=== PATIENT | female | born 1960 | race Caucasian/White ===

== ENCOUNTER 2016-09-30 20:54 | Emergency (ER) | payer MEDICARE, BC ==
[2016-09-30 19:00] LABS: BASOPHILS 0.3 %; BASOPHILS ABSOLUTE 0.02 10/3/uL (0.0-0.16); EOSINOPHILS 1.4 %; ER CBC TAT 0 Hrs 05 Mins; HEMATOCRIT 35.2 % (36.0-48.0); HEMOGLOBIN 11.5 g/dL (12.0-16.0); IMMATURE GRANULOCYTES 0.3 %; IMMATURE GRANULOCYTES ABSOLUTE 0.02 10/3/uL (0.0-0.11); LYMPHOCYTES 32.4 %; LYMPHOCYTES ABSOLUTE 2.33 10/3/uL (0.67-4.30); MANUAL DIFF NO %; MEAN CORPUS HGB CONC 32.7 g/dL (32.0-36.0); MEAN CORPUSCULAR HEMOGLOB 28.5 pg (26.0-34.0); MEAN CORPUSCULAR VOLUME 87.1 fL (80-100); MONOCYTES 5.7 %; MONOCYTES ABSOLUTE 0.41 10/3/uL (0.21-1.20); NEUTROPHILS 59.9 %; NEUTROPHILS ABSOLUTE 4.32 10/3/uL (2.02-8.40); PLATELET COUNT 172 10/3/uL (150-400); RBC DISTRIBUTION WIDTH 13.7 % (12.0-16.0); RED CELL COUNT 4.04 10/6/uL (4.0-5.6); WHITE BLOOD CELLS 7.2 10/3/uL (4.5-10.5)
[2016-09-30 19:16] LABS: A/G RATIO 1.2 (0.7-1.9); ALBUMIN 3.6 G/DL (3.5-5.0); ALKALINE PHOSPHATASE 104 U/L (45-117); CALCIUM, SERUM 8.3 MG/DL (8.5-10.4); CHLORIDE, SERUM 107 MMOL/L (96-112); CO2 (CARBON DIOXIDE) 26 MMOL/L (24-34); CREATININE 0.76 MG/DL (0.55-1.02); GFR AFRICAN AMERICAN 102 ML/MIN (>=60); GFR NON AFRICAN AMERICAN 88 ML/MIN (>=60); GLOBULIN 3.1 G/DL (2.5-4.1); GLUCOSE, SERUM 98 MG/DL (60-99); POTASSIUM, SERUM 3.7 MMOL/L (3.5-5.3); SGOT(AST) 7 U/L (5-40); SGPT(ALT) 21 U/L (5-65); SODIUM, SERUM 143 MMOL/L (135-148); TOTAL BILIRUBIN 0.6 MG/DL (0-1.2); TOTAL PROTEIN 6.7 G/DL (6.0-8.5)
[2016-09-30 19:18] LABS: BUN (BLOOD UREA NITROGEN) 11 MG/DL (6-23)
[~2016-09-30 20:54] MED LIST: ACCUNEB INH; ALBUTEROL; ALLEGRA180 PO; AMB10 PO; AMITIZA8 MCG PO; AMRIX30 MG PO; BENTYL10 PO; CALTRA600D PO; CELEXA20 PO; CELEXA40 MG PO; CYANO1000T PO; CYMBALTA30 PO; D 5000 PO; EPIPEN0.3 IM; FISH-EPA1000 MG PO; FLONASE NAS; HARD NAILS PO; JUICE PLUS PO; KLOR-CON 1010 MEQ PO; KLOR-CON M1010 MEQ PO; L20 PO; L40 PO; LIDODERM T; MINIVELLE PATCH TOP; MINIVELLE1 EAC1 TOP; MONO20 PO; NASACORTAQ NAS; NUCYNTA75 MG PO; PATANASE0.6 % NAS; PERCOCET1 TA4 PO; PERCOCET1 TA5 PO; PR25 PO; PREV30 PO; PRILO PO; PROAIR HFA INH; PROZAC PO; PULMICORT180 MCG INH; PVC V; REQUIP1 PO; REQUIP25 PO; ROXICODONE15 MG PO; SINGULAIR1 PO; SYMBICORT 160/41 INH INH; SYMBICORT 80/4.1 INH INH; VITAMIN B-122500 MCG SL; VIVELLE-DOT0.1 MG TOP; ZANAFLEX 4 MG TA4 MG PO; ZETIA PO; ZOCOR40 PO
== END 2016-09-30 22:25 | disposition home or self-care (01) ==
LOC: ER 20:54
PROVIDERS: Hospitalist
DX: M54.5 Low back pain (principal); R32 Unspecified urinary incontinence; F17.200 Nicotine dependence, unspecified, uncomplicated; Z88.0 Allergy status to penicillin; Z88.1 Allergy status to other antibiotic agents; Z91.011 Allergy to milk products; Z91.038 Other insect allergy status; Z79.899 Other long term (current) drug therapy
CPT/HCPCS: 72148; 80053; 85025; 96374; 99284; J2405